=== PATIENT | male | born 1940 | race Caucasian/White ===

== ENCOUNTER → 2018-08-17 | Outpatient (CLI) | payer OTHER, MEDICARE ==
[~2018-08-17] MED LIST: AMIO200T PO; APIX5TAB PO; ASPI-496 PO; CARV12.543 PO; CLOP75TA52 PO; DOCU-131 PO; FURO-92 PO; INSU100I18 SQ-INSULIN; LOSA25TA2 PO; MULT-717 PO; OXYC1TAB7 PO; PANT40TA3 PO; POTA10TA5 PO; SIMV20TA3 PO
== END | disposition home or self-care (01) ==
LOC: CFH 10:57
PROVIDERS: ATTEND Internal Medicine Cardiovascular Disease
DX: I34.0 Nonrheumatic mitral (valve) insufficiency (principal); I35.8 Other nonrheumatic aortic valve disorders; I11.0 Hypertensive heart disease with heart failure; I50.9 Heart failure, unspecified; E78.5 Hyperlipidemia, unspecified
CPT/HCPCS: 93306

== ENCOUNTER → 2020-04-04 | Outpatient (CLI) | payer MEDICARE ==
[~2020-04-04] MED LIST changes: +SIMV20TA19 PO; -SIMV20TA3 PO
== END | disposition home or self-care (01) ==
LOC: CVU 13:17
PROVIDERS: ATTEND Internal Medicine Cardiovascular Disease
DX: I08.1 Rheumatic disorders of both mitral and tricuspid valves (principal); I11.9 Hypertensive heart disease without heart failure; I25.10 Atherosclerotic heart disease of native coronary artery without angina pectoris
CPT/HCPCS: 93306